=== PATIENT | female | born 1945 | race Caucasian/White ===

== ENCOUNTER 2019-07-17 13:57 | Outpatient (CLI) | payer MEDICARE, BC ==
--- NOTE | 2019-07-17 15:20 | ULT ---
Exam: Thyroid ultrasound HISTORY: Right thyroid nodule COMPARISON: None FINDINGS: Thyroid isthmus: 0.23 cm Right thyroid lobe: 1.0 x 0.7 x 8.2 cm Left thyroid lobe: 0.9 x 0.8 x 2.8 cm Thyroid nodules: No evidence of a solid, mixed solid/cystic or cystic nodules throughout the thyroid gland. IMPRESSION: No sonographic evidence of a thyroid nodule
== END 2019-07-17 13:58 | disposition home or self-care (01) ==
LOC: BICULT 13:57
PROVIDERS: ATTEND Internal Medicine Endocrinology, Diabetes & Metabolism
DX: E04.1 Nontoxic single thyroid nodule (principal)
CPT/HCPCS: 76536